=== PATIENT | female | born 1975 | race Caucasian/White ===

== ENCOUNTER 2019-01-08 21:29 | Emergency (ER) | payer OTHER, MEDICAID ==
[~2019-01-08] VITALS: Ht 165.1 cm; Wt 91.2 kg
[2019-01-08 21:35] VITALS: Ht 165.1 cm; Wt 91.2 kg
[2019-01-08 22:32] LABS: BASOPHIL % 0.6 % (0-2); PLATELET COUNT 237 x10^3mcL (130-400); RED CELL DISTRIBUTION WIDTH 13.4 % (11.5-14.5)
[2019-01-08 22:51] LABS: CALCIUM 8.1 mg/dL (8.5-10.1); CARBON DIOXIDE 27.3 mmol/L (21-32); CHLORIDE SERUM 106 mmol/L (98-107); CREATININE SERUM 0.8 mg/dL (0.6-1.0); GFR1 > 60 mL/min; GLUCOSE SERUM 98 mg/dL (74-106); POTASSIUM SERUM 3.4 mmol/L (3.5-5.1); SODIUM SERUM 143 mmol/L (136-145)
[2019-01-08 23:06] LABS: FREE T4 1.21 ng/dL (0.76-1.46)
[2019-01-08 23:31] VITALS: BP 120/72
== END 2019-01-08 23:31 | disposition home or self-care (01) ==
LOC: ED 21:29
PROVIDERS: Emergency Medicine
DX: R42 Dizziness and giddiness (principal); R25.1 Tremor, unspecified; M54.2 Cervicalgia; E05.90 Thyrotoxicosis, unspecified without thyrotoxic crisis or storm
CPT/HCPCS: 36415; 82962; 84439; J8597

== ENCOUNTER 2020-05-31 04:01 | Emergency (ER) | payer OTHER ==
[~2020-05-31] VITALS: Ht 165.1 cm; Wt 83.0 kg
[2020-05-31 04:13] VITALS: Ht 165.1 cm; Wt 83.0 kg
[2020-05-31 05:30] LABS: PLATELET COUNT 230 x10^3mcL (179-408); RED CELL DISTRIBUTION WIDTH 13.2 % (12.3-17.7)
[2020-05-31 05:42] LABS: BAND NEUTROPHIL 3 % (0-10); MONOCYTE 6 % (0-7); PLATELET MORPHOLOGY PLATELETS NORMAL; SEGMENTED NEUTROPHILS 82 % (37-75); rbc morphology (normal/abnorm) NORMAL (NORMAL)
[2020-05-31 05:43] LABS: CARBON DIOXIDE 25.3 mmol/L (21-32); CHLORIDE SERUM 102 mmol/L (98-107); GFR1 > 60 mL/min; GLUCOSE SERUM 115 mg/dL (74-106); POTASSIUM SERUM 3.1 mmol/L (3.5-5.1); SODIUM SERUM 139 mmol/L (136-145)
[2020-05-31 05:47] LABS: ALKALINE PHOSPHATASE 87 U/L (46-116); ALT/SGPT 31 U/L (14-59); AST/SGOT 40 U/L (15-37); BILIRUBIN TOTAL 0.76 mg/dL (0.20-1.00); LIPASE 76 IU/L (73-393); TOTAL PROTEIN, SERUM 6.7 g/dL (6.4-8.2)
[2020-05-31 05:53] LABS: ALBUMIN 3.2 g/dL (3.4-5.0)
[2020-05-31] MEDS ORDERED: KEFLEX500 M1 PO (07:51)
[2020-05-31 08:07] VITALS: BP 101/60
== END 2020-05-31 08:07 | disposition home or self-care (01) ==
LOC: ED 04:01
PROVIDERS: Emergency Medicine
DX: N39.0 Urinary tract infection, site not specified (principal); Z20.828 Contact with and (suspected) exposure to other viral communicable diseases
CPT/HCPCS: J0696; J1885; J7030; J7060